=== PATIENT | female | born 1985 | race Caucasian/White ===

== ENCOUNTER 2017-09-23 07:33 | Emergency (ER) | payer OTHER ==
[2017-09-23 07:59] VITALS: BP 117/81
--- NOTE | 2017-09-23 08:06 | UC ---
Throat Pain/Nasal Christophe HPI - HPI Summary HPI Summary: sore throat x 3 days no fever, + chills, body aches no runny nose, no cough - History of Current Complaint Chief Complaint: UCRespiratory Stated Complaint: SORE THROAT Time Seen by Provider: 09/23/17 08:00 Hx Obtained From: Patient Hx Last Menstrual Period: 09/15/17 ?: No Onset/Duration: Gradual Onset, Lasting Days - 3, Still Present Severity: Moderate Cough: None Associated Signs & Symptoms: Negative: Dysphagia, Drooling, Wheezing, Hoarseness , Sinus Discomfort, Nasal Discharge, Fever, Vomiting, Rash - Allergies/Home Medications Allergies/Adverse Reactions: Allergies Allergy/AdvReac Type Severity Reaction Status Date / Time No Known Allergies Allergy Verified 09/23/17 07:53 Home Medications: Home Medications Naproxen Sodium [Naproxen Sodium 220 mg] 440 mg PO Q4H PRN 09/23/17 [History Confirmed 09/23/17] PMH/Surg Hx/FS Hx/Imm Hx Previously Healthy: Yes - Surgical History Surgical History: Yes Surgery Procedure, Year, and Place: eye - Family History Known Family History: Negative: Diabetes - Social History Alcohol Use: None Substance Use Type: None Smoking Status (MU): Never Smoked Tobacco Review of Systems Constitutional: Negative Skin: Negative Eyes: Negative ENT: Sore Throat Respiratory: Negative Cardiovascular: Negative Is Patient Immunocompromised?: No All Other Systems Reviewed And Are Negative: Yes Physical Exam Triage Information Reviewed: Yes Appearance: Well-Appearing, No Pain Distress, Well-Nourished Vital Signs: Initial Vital Signs Temp 98.6 F 09/23/17 07:54 Pulse 86 09/23/17 07:54 Resp 18 09/23/17 07:54 BP 117/81 09/23/17 07:54 Pulse Ox 100 09/23/17 07:54 Vital Signs Reviewed: Yes Eyes: Positive: Conjunctiva Clear ENT: Positive: Normal ENT inspection, Hearing grossly normal, Pharyngeal erythema. Negative: Nasal congestion, Nasal drainage Neck exam: Normal Neck: Positive: Supple, Nontender, No Lymphadenopathy Respiratory: Positive: Chest non-tender, Lungs clear, Normal breath sounds, No respiratory distress Cardiovascular: Positive: RRR, No Murmur, Pulses Normal Skin Exam: Normal Throat Pain/Nasal Course/Dx - Differential Dx/Diagnosis Provider Diagnoses: pharyngitis Discharge - Discharge Plan Condition: Stable Disposition: HOME Prescriptions: Amoxicillin PO (*) [Amoxicillin 875 MG (*)] 875 mg PO BID #20 tab Patient Education Materials: Strep Throat (ED)
== END 2017-09-23 08:26 | disposition home or self-care (01) ==
LOC: EDBD → UCCORT 07:33
DX: J02.9 Acute pharyngitis, unspecified (principal)
CPT/HCPCS: 87651; 99202; G0463

== ENCOUNTER 2019-03-08 18:04 | Inpatient (IN) | payer BC ==
--- NOTE | 2019-03-08 19:33 | PN ---
L&D Outpatient: Visit - Reproductive Information Estimated Due Date: 03/11/19 Gestational Age: 39 Weeks and 4 Days : 3 Para: 2 - Reason for Visit Visit Reason: labor evaluation - Antepartal Records Antepartal Record: Reviewed, Complicated by: - anemia - Patient History Patient History Significant: Yes Patient History Significant For: Thalessemia minor. 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 Declined Tylenol. Reports sx now improved, No Visual Changes Movement: Normal L&D Outpatient: Exam Vitals - Most Recent: Initial BP 130/80 Repeat 120/72 HR 93 RR 20 T 97.8 SpO2 100% on RA - Cervical Exam Cervical Exam: 3-4cm/50%/vtx ballotable - Abdominal Exam Abdomen Exam: Non-Tender, Fundal Height Consistent with Dates - Membranes Membrane Status: Intact - BBOW palpable on VE - Ultrasound/Biophysical Profile Ultrasound Status: Not Done EFM Findings - External Monitor Findings Baseline Heart Rate: 145 - On arrival FHT 160 with one isolated decel with pt flat on her back. Since then Cat I FHT and baseline has come down to 145 External Monitor Findings: Accelerations Present, No Pattern of Variable or Late Decelerations, Variability Moderate, Baseline Stable External Monitor Findings Comment: No evidence of metabolic acidemia Contractions: Irregular, Moderate Contraction Frequency: q 5-10 min L&D Outpatient: Asses/Plan Assessment: IUP at 39-4/7 in latent labor since 0400 Maternal exhaustion No evidence of metabolic acidemia P: Offered discharge home to await active labor, trial of therapeutic rest overnight, could consider IOL in AM if still no active labor. Pt to review with her and will let us know her preference.
[2019-03-08] MEDS ORDERED: Lactated Ringers 1000 ML Bag* 500 ML IV ONE (20:00)
[2019-03-08] MEDS ORDERED: Promethazine INJ(RESTRICTED)* 25 MG/ML 1 ML VIAL IV ONE (20:00)
[2019-03-08] MEDS ORDERED: Nalbuphine* 10 MG/ML 1 ML VIAL IV ONE (20:00)
--- NOTE | 2019-03-08 20:13 | HP ---
General Information - Reason for Visit Prolonged latent labor at term - General Information Maternal Age: 33 Grav: 3 Para: 2 SAB: 0 IEA: 0 Estimated Due Date: 03/11/19 Determined By: LMP Gestational Age in Weeks/Days: 39-01/18 Maternal Blood Type and Rh: O Positive - Results this Serology/RPR Result: Non-Reactive Rubella Result: Immune HBsAg Result: Negative HIV Result: Negative GBS Culture Result: Negative Past Medical History Delivery History: Hx Uncomplicated Vaginal Delivery Delivery History Comment: 09/2011 liveborn female 8lbs 2oz. Delivered at [facility] [place] by Red Macario CNM. Complications PPH 08/2013 liveborn male 7lbs 15oz. Delivered at [facility] [place] by Jhon Akers CNM. No complications Pertinent Past Medical History: See Records Past Medical History Comment: Thalessemia Minor. 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 Wears a prosthesis Pertinent Family History: See Records Family History Comment: Father: , Multiple Myeloma Mother: Hypertension, Hyperlipidemia Brother: Mental retardation, unknown etiology PGM: , Ovarian Ca PGF: , Heart disease MGM: , Alzheimer's disease MGF: , [place] - Antepartal Records Antepartal Records: Reviewed, Complicated by: - Anemia Review of Systems Constitutional: Uncomfortable - with UCs CV Complaint: No Respiratory: Shortness of Breath: No Gastrointestinal: No Nausea/Vomiting Genitourinary: No Dysuria, No Bleeding, No Leaking Fluid Musculoskeletal: Contractions, Pressure Neurological: No Headache, No Visual Changes Movement: Normal Exam Allergies/Adverse Reactions: Allergies No Known Allergies Allergy (Verified 09/23/17 07:53) BP 120/74 HR 86 T 99.1 RR 18 - Measurements Height: 5 ft 2 in Weight: 196 lb Weight in lbs: [id number] Body Mass Index (BMI): 35.8 Pre- Weight: 158 lb Weight Gained This : 38 lbs and 0 ozs - Exam Breast: Breast Exam Deferred CVA: No CVA Tenderness Extremities: No Edema Heart: Normal Rhythm/Heart Sounds HEENT: No Significant Findings Lungs: Clear Bilaterally Rectal: Rectal Exam Deferred Reflexes: DTR 2+ Thyroid: No Thyromegaly - Abdominal Exam Abdomen Exam: Non-Tender - Ultrasound/Biophysical Profile Ultrasound Status: Not Done Targeted Exam Findings Estimated Weight: EFW 8lbs by Amelia Cervical Exam: 3cm, 4cm Effacement: 50% Station: Ballotable Presenting Part: Vertex Membrane Status: Bulging Sterile Speculum Exam: Not done Bleeding/Discharge: None EFM Findings - External Monitor Findings Baseline Heart Rate: 145 External Monitor Findings: Accelerations Present, No Pattern of Variable or Late Decelerations, Variability Moderate, Baseline Stable External Monitor Findings Comment: No evidence of metabolic acidemia Contractions: Irregular, Mild, Moderate Contraction Frequency: q 5-10 min Assessment/Plan - Assessment IUP at 39-4/7 in latent labor since 0400 Maternal exhaustion No evidence of metabolic acidemia - Obstetrical Risk Factors Risk Factors Comment: Pt lives an [place] from [facility] [place] and has concerns about going home to await active labor. Strong preference to trial therapeutic rest and if no spontaneous active labor trial term IOL in AM after sleep - Plan Plan: Observe, Admit - Anticipate Vaginal Delivery Plan Comment: P: PARQ therapeutic rest with Nubain/Phenergan. Pt desires. IV Placement for h/ o anemia and PPH with first delivery. Discussed option to try IOL in AM if no spontaneous active labor overnight. Pt agrees. - Date/Time of Admission Date of Admission: 03/08/19 Time of Admission: 19:57
[2019-03-08 20:22] LABS: ABS Basophils 0.1 10^3/ul (0-0.2); ABS Eosinophils 0.1 10^3/ul (0-0.6); ABS Neutrophils 9.1 10^3/ul (1.5-7.7); Eosinophil % 0.6 %; Hematocrit 32 % (35-47); Hemoglobin 9.8 g/dL (12.0-16.0); Lymphocyte % 16.2 %; Mean Corpuscular HGB Conc 31 g/dL (31-36); Mean Corpuscular Hemoglobin 20 pg (27-31); Mean Corpuscular Volume 64 fL (80-97); Mean Platelet Volume 8.7 fL (7.4-10.4); Platelet Count 287 10^3/uL (150-450); Red Blood Count 4.91 10^6 /uL (3.70-4.87); Red Cell Distribution Width 14 % (10.5-15); White Blood Count 12.3 10^3/uL (3.5-10.8)
[2019-03-09] MEDS ORDERED: Oxytocin in LR* 20 UNITS/1,000 ML BAG IVPB ONE ×2 (01:40→07:08)
--- NOTE | 2019-03-09 02:10 | PN ---
Progress Note - Progress Note Date of Service: 03/09/19 Note: S: Pt s/p spontaneous rupture to clear fluid at 0115. Still pretty comfortable but aware of UCs. Was able to get a good nap with Nubain/Phenergan O: BP 109/81 HR 86 T 99.1 SpO2 99% on RA FHT 145bpm. Moderate variability. +Accels. No decels UCs q 2-4 min, mild-moderate VE: 3-4/50%/vtx high (unchanged) moderate clear fluid noted with exam A: IUP at 39-5/7 with spontaneous rupture of membranes in early active labor No evidence of metabolic acidemia P: Will continue to monitor. Consider augmentation PRN
--- NOTE | 2019-03-09 07:07 | PN ---
Progress Note - Progress Note Date of Service: 03/09/19 Note: S: Pt has been unable to sleep overnight due to UCs. When up walking they felt stronger. Also c/o more pressure "like I have to poop" but denies regular UCs, no bloody show O: T: 99.2 BP 116/73 FHT: 145bpm. Moderate variability. +Accels. No decels UCs irregular VE 3-4/50%/vtx -3, unchanged A: IUP at 39-5/7 with SROM in early labor No evidence of metabolic acidemia P: Counseled for IV pitocin augmentation. Pt agrees.
[2019-03-09] MEDS ORDERED: Oxytocin in LR* 20 UNITS/1,000 ML BAG IVPB SCH ×2 (08:00→12:00)
[2019-03-09] MEDS ORDERED: Lactated Ringers 1000 ML Bag* 1,000 ML IV SCH ×2 (08:00→12:00)
--- NOTE | 2019-03-09 08:07 | PN ---
Progress Note - Progress Note Date of Service: 03/09/19 Note: S: Pt resting comfortably in bed O: VSS, afebrile FHT baseline 160bpm. Moderate variability. Late decels with UCs UCs q 10 min, IV pitocin at 4mu/min VE deferred A: IUP at 39-5/7 with SROM in early labor Cat II FHT, bears close monitoring P: O2 by mask, increased IV fluids, maternal position changes. Close monitoring of maternal/ status
--- NOTE | 2019-03-09 09:23 | PN ---
Progress Note - Progress Note Date of Service: 03/09/19 Note: S: Pt resting comfortably. Aware of UCs and report they feel slightly stronger but coping well O: BP 121/72 HR 96 T 99 FHT 155bpm. Moderate variability. +Accels. Occ decels some appear late and some appear to be variables but not persistent with every UC UCs q 4-6 min, IV pit at 8mu/min VE: deferred A: IUP at 39-5/7 with SROM, clear in early active labor Cat II FHT, doubt metabolic acidemia P: Enc rest while she can. Close monitoring of maternal/ status. Continue IV pitocin
--- NOTE | 2019-03-09 10:56 | PN ---
Progress Note - Progress Note Date of Service: 03/09/19 Note: S: Pt working with UCs and much more uncomfortable in the last 30 min. +Bloody show when up to bathroom O: BP 127/74 HR 75 T 99 FHT 145bpm. Moderate variability. +Accels. Some early type decels and rare variables UCs q 2-3 IV pitocin at 10mu/min VE: 5-6cm/90%/vtx -2 A: IUP at 39-5/7 in with SROM in active labor Cat II FHT, doubt metabolic acidemia P: Con't IV pitocin, close monitoring of maternal/ status. Dr. Solares aware of pt presence and condition. Anticipate
[2019-03-09] MEDS ORDERED: Dibucaine 1% 28.35 GM TUBE PR PRN (11:43)
[2019-03-09] MEDS ORDERED: Witch Hazel PAD* JAR TOPICAL PRN (11:43)
[2019-03-09] MEDS ORDERED: Acetaminophen TAB* 325 MG PO PRN (11:43)
[2019-03-09] MEDS ORDERED: Glycerin ADULT SUPP PR PRN (11:43)
--- NOTE | 2019-03-09 11:43 | PROCNOTE ---
[facility] OB: Delivery Note - Delivery A Date of : 03/09/19 Time of : 11:24 [place] Sex: Male - name to be determined Score 1 Minute: 8 Score 5 Minutes: 9 Gestational Age in Weeks and Days at Delivery: 39 Weeks and 5 Days Delivery Method: Spontaneous Vaginal Labor: Induced - IV pitocin for augmentation s/p spontaneous rupture of membranes, clear Did Patient attempt ?: N/A, No Previous Amniotic Fluid: Clear Estimated Blood Loss: 300 Anesthesia/Analgesia: None Delivered By: Sparkle Whitaker - Nursery Level of Nursery: Regular/Bedside - Perineum Perineal Injury: None/Intact Perineal Repair: None - Events Delivery Events of Note: Pitocin During Labor, Supplemental O2 to Mother - Additional Delivery Notes Additional Delivery Notes: Pt admitted in latent labor. Received therapeutic rest with IV Nubain and Phenergan and then experienced spontaneous rupture of membranes to clear fluid. IV pitocin augmentation started at 6 hours s/p rupture which led to onset active labor. Active phase 1 hour, 30 min. Pushed x 1 min. liveborn male. Slow, controlled delivery of head. Direct OA. Shoulders followed easily. Nuchal cord x 1 reduced after delivery. vigorous with spontaneous cry. HR> 110bpm. Delivered to maternal abdomen. Cord clamped x 2 and cut by FOB when pulsations ceased. Spontaneous delivery intact placenta after 6 min 3rd stage. Fundus firm to massage with IV pitocin infusing. Minimal bleeding. Perineum intact. No repair needed as above. EBL 300mL. At time of note mother and infant in stable condition. Planning to breast feed.
[2019-03-09] MEDS ORDERED: Simethicone TAB* 80 MG TAB.CHEW PO SCH (12:30)
[2019-03-09] MEDS: Docusate CAP* 100 MG PO SCH ×2 (14:03→20:18)
[2019-03-09] MEDS: Ibuprofen TAB* 600 MG PO PRN (23:34)
[2019-03-10 06:28] LABS: ABS Basophils 0.1 10^3/ul (0-0.2); ABS Eosinophils 0.1 10^3/ul (0-0.6); ABS Lymphocytes 2.1 10^3/ul (1.0-4.8); ABS Monocytes 1.2 10^3/ul (0-0.8); ABS Neutrophils 10.7 10^3/ul (1.5-7.7); Eosinophil % 0.6 %; Hematocrit 27 % (35-47); Hemoglobin 8.4 g/dL (12.0-16.0); Lymphocyte % 14.8 %; Mean Corpuscular HGB Conc 31 g/dL (31-36); Mean Corpuscular Hemoglobin 20 pg (27-31); Mean Corpuscular Volume 65 fL (80-97); Mean Platelet Volume 8.6 fL (7.4-10.4); Platelet Count 217 10^3/uL (150-450); Red Blood Count 4.17 10^6 /uL (3.70-4.87); Red Cell Distribution Width 15 % (10.5-15); White Blood Count 14.1 10^3/uL (3.5-10.8)
[2019-03-10] MEDS: Docusate CAP* 100 MG PO SCH ×2 (07:45→13:20)
[2019-03-10] MEDS: Ibuprofen TAB* 600 MG PO PRN (07:45)
[2019-03-10 08:00] VITALS: BP 108/64
[2019-03-10] MEDS ORDERED: Ferrous Gluconate TAB* 324 MG TAB PO SCH (09:00)
== END 2019-03-10 17:18 | disposition home or self-care (01) | DRG 560 ==
LOC: MCHOBOUT 18:04 → MCHOB 19:57
PROVIDERS: ADMIT Midwife; ATTEND Midwife
PROC: 10E0XZZ Delivery of Products of Conception, External Approach (ICD-10-PCS; principal; 2019-03-09)
DX: O63.0 Prolonged first stage (of labor) (principal); Z37.0 Single live birth; O69.81X0 Labor and delivery complicated by cord around neck, without compression, not applicable or unspecified; Z3A.39 39 weeks gestation of pregnancy
CPT/HCPCS: 36415; 85025; 85060; 86850; 86900; 86901; A9270-GY; J2300; J2550